=== PATIENT | male | born 1955 | race Caucasian/White ===

== ENCOUNTER 2019-04-01 05:55 | Emergency (ER) | payer OTHER ==
[~2019-04-01] VITALS: Ht 182.9 cm; Wt 72.6 kg
[~2019-04-01 05:55] MED LIST: ACHD5005 PO; BACL10TA PO; CITA-105 PO; HYDR1CAP2 PO; NITR-65 PO; PROP20TA5 PO; SULF1TAB34 PO
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
--- NOTE | 2019-04-01 06:14 | NUR ---
RADIOLOGY TO BEDSIDE
[2019-04-01] MEDS ORDERED: MUPI1OIN6 TP (06:19)
[2019-04-01] MEDS ORDERED: AMOX-358 PO (06:19)
[2019-04-01 06:30] VITALS: BP 0/0
[2019-04-01] MEDS ORDERED: AUGMENTIN 875 MG TAB (AMOXICILLIN/CLAVULANATE) PO SCH (06:30)
--- NOTE | 2019-04-01 07:20 | Diagnostic Imaging Report ---
PATIENT HISTORY: Dog bit to the right hand. TECHNIQUE: 3 views of the right hand COMPARISON: None FINDINGS: No acute fracture or dislocation is seen in the right hand. Alignment appears normal. Joint spaces are preserved. No radiopaque foreign bodies are seen. There is soft tissue swelling and soft tissue gas from laceration at the dorsal aspect of the right hand. IMPRESSION: 1. Soft tissue swelling and laceration at the dorsal right hand with no acute osseous abnormalities seen. Dictated by: Dictated on workstation # [id number]
--- NOTE | 2019-04-01 08:27 | NUR ---
CONTACTED [facility]ING DOG BITE. FACE SHEET FAXED TO HER OFFICE PER HER REQUEST.
== END 2019-04-01 06:30 | disposition home or self-care (01) ==
LOC: EDUNIT# 05:55 → ER 05:57
DX: S61.451A Open bite of right hand, initial encounter (principal); E78.00 Pure hypercholesterolemia, unspecified; F41.9 Anxiety disorder, unspecified; Z87.442 Personal history of urinary calculi; W54.0XXA Bitten by dog, initial encounter
CPT/HCPCS: 73130

== ENCOUNTER → 2023-06-23 | Outpatient (CLI) | payer OTHER ==
[~2023-06-23] MED LIST changes: +AMOX-358 PO; +MUPI1OIN6 TP
[2023-06-23 08:52] LABS: BASOPHILS % (AUTO) 1 % (0-10); EOSINOPHILS # (AUTO) 0.1 10^3/uL (0.0-0.3); EOSINOPHILS % (AUTO) 2 % (0-10); HEMATOCRIT 42 % (40-54); HEMOGLOBIN 14.3 g/dL (13.3-17.7); LYMPHOCYTES # (AUTO) 1.3 10^3/uL (1.0-4.0); LYMPHOCYTES % (AUTO) 24 % (12-44); MEAN CORPUSCULAR HEMOGLOBIN 30 pg (25-34); MEAN CORPUSCULAR HGB CONC 34 g/dL (32-36); MEAN CORPUSCULAR VOLUME 88 fL (80-99); MONOCYTES # (AUTO) 0.5 10^3/uL (0.0-1.0); MONOCYTES % (AUTO) 9 % (0-12); NEUTROPHILS # (AUTO) 3.6 10^3/uL (1.8-7.8); NEUTROPHILS % (AUTO) 65 % (42-75); PLATELET COUNT 173 10^3/uL (130-400); WHITE BLOOD COUNT 5.5 10^3/uL (4.3-11.0)
[2023-06-23 09:13] LABS: ALANINE AMINOTRANSFERASE 30 U/L (0-55); ALKALINE PHOSPHATASE 52 U/L (40-136); BILIRUBIN,TOTAL 0.5 MG/DL (0.1-1.0); BUN/CREATININE RATIO 19; CALCIUM 9.3 MG/DL (8.5-10.1); CARBON DIOXIDE 23 MMOL/L (21-32); CHLORIDE 108 MMOL/L (98-107); CREATININE SERUM 1.02 MG/DL (0.60-1.30); GFR ESTIMATED 81; GLUCOSE 99 MG/DL (70-105); POTASSIUM 4.2 MMOL/L (3.6-5.0); SODIUM 139 MMOL/L (135-145); TOTAL PROTEIN 6.5 GM/DL (6.4-8.2)
== END ==
LOC: CARD 08:39
PROVIDERS: ATTEND Nurse Practitioner Family
DX: I10 Essential (primary) hypertension (principal)
CPT/HCPCS: 36415; 80053; 84484; 85025; 93005

== ENCOUNTER → 2023-06-24 | Outpatient (CLI) | payer OTHER | LOC: LAB 14:40 | PROVIDERS: ATTEND Nurse Practitioner Family | DX: I10 Essential (primary) hypertension (principal) | CPT/HCPCS: 36415; 85652 ==